=== PATIENT | female | born 1985 | race African-American/Black ===

== ENCOUNTER 2021-08-26 18:11 | Inpatient (IN) | payer OTHER ==
[2021-08-26 20:10] VITALS: BMI 21.1
[2021-08-26] MEDS ORDERED: IBUPROFEN 400 MG TABLET (FP) PO PRN (20:45)
[2021-08-26] MEDS ORDERED: ACETAMINOPHEN 325 MG TABLET (FP) PO PRN (20:45)
[2021-08-26] MEDS ORDERED: P-EPHED 60MG/TRIPROLIDI 2.5MG TABLET PO PRN (20:45)
[2021-08-26] MEDS ORDERED: NICOTINE POLACRILEX 2 MG GUM BC PRN (20:45)
[2021-08-26] MEDS ORDERED: MAGNESIUM HYDROX 2400MG/30ML ORAL SUSPENSION 30 ML CUP PO PRN (20:45)
[2021-08-26] MEDS ORDERED: LOPERAMIDE HCL 2 MG CAPSULE PO PRN (20:45)
[2021-08-26] MEDS ORDERED: MAG HYDROX/AL HYDROX/SIMETH 30 ML UNIT-DOSE CUP PO PRN (20:45)
[2021-08-26] MEDS ORDERED: guaiFENesin 200 MG/10 ML 10 ML UNIT-DOSE CUPS PO PRN (20:45)
[2021-08-26] MEDS ORDERED: MAGNESIUM CITRATE 300 ML BOTTLE PO PRN (20:45)
[2021-08-26] MEDS ORDERED: TUBERCULIN PPD 5 TU/0.1ML VIAL ID ONE (23:29)
[2021-08-26] MEDS: THIAMINE HCL 100 MG TABLET (FP) PO SCH (23:34)
[2021-08-26] MEDS: MELATONIN 5 MG TABLETS PO SCH (23:34)
[2021-08-27] MEDS: NICOTINE 14 MG/24 HOURS TOPICAL PATCH TD SCH (09:38)
[2021-08-27] MEDS: PRENATAL VITAMINS W/ FOLIC ACID TABLET (FP) PO SCH (09:38)
[2021-08-27 10:34] LABS: PH,URINE 5.5 (5.0-8.0); URINE APPEARANCE CLEAR; URINE BILIRUBIN NEGATIVE (NEGATIVE); URINE COLOR YELLOW; URINE GLUCOSE (UA) NEGATIVE (NEGATIVE); URINE KETONE TRACE (NEGATIVE); URINE LEUK ESTERASE NEGATIVE (NEGATIVE); URINE NITRITE NEGATIVE (NEGATIVE); URINE PROTEIN NEGATIVE (NEGATIVE); URINE UROBILINOGEN 0.2 mg/dL (0.2-1.0)
[2021-08-27 10:43] LABS: HEMATOCRIT 34.6 % (32.4-45.2); HEMOGLOBIN 10.5 GM/dL (10.7-15.3); MCHC 30.4 g/dl (32.0-36.0); MEAN CELL VOLUME 68.9 fl (80-96); MEAN PLT VOLUME 8.4 fl (7.5-11.1); PLATELET COUNT 297 10^3/uL (134-434); RBC 5.02 M/mm3 (3.60-5.2); RDW 14.5 % (11.6-15.6); WHITE BLOOD COUNT 3.4 K/mm3 (4.0-10.0)
[2021-08-27 10:46] LABS: ALBUMIN 3.4 g/dl (3.4-5.0); BLOOD UREA NITROGEN 8.1 mg/dL (7-18)
[2021-08-27 10:49] LABS: CREATININE 0.9 mg/dL (0.55-1.3)
[2021-08-27 10:51] LABS: BILIRUBIN,TOTAL 0.4 mg/dL (0.2-1); TOT PROT 6.1 g/dl (6.4-8.2)
[2021-08-27] MEDS: BENZTROPINE MESYLATE 1 MG TABLET PO SCH ×2 (12:26→21:10)
[2021-08-27] MEDS: ZIPRASIDONE 40 MG CAPSULE PO SCH ×2 (12:26→21:10)
[2021-08-27] MEDS: amLODIPine BESYLATE 2.5 MG TABLET (FP) PO SCH ×2 (14:24→21:11)
[2021-08-27] MEDS: THIAMINE HCL 100 MG TABLET (FP) PO SCH (21:10)
[2021-08-27] MEDS: MELATONIN 5 MG TABLETS PO SCH (21:10)
[2021-08-27] MEDS: risperiDONE 2 MG TABLET PO SCH (21:11)
[2021-08-27] MEDS: metoPROLOL SUCCINATE 25 MG TAB.SR.24H (FP) PO SCH (21:12)
[2021-08-27] MEDS ORDERED: metoPROLOL SUCCINATE 25 MG TAB.SR.24H (FP) PO SCH (22:00)
[2021-08-28] MEDS: NICOTINE 14 MG/24 HOURS TOPICAL PATCH TD SCH (10:22)
[2021-08-28] MEDS: CHOLECALCIFEROL (VIT D3) 1,000 UNIT (25 MCG) TABLET PO SCH (10:22)
[2021-08-28] MEDS: BENZTROPINE MESYLATE 1 MG TABLET PO SCH ×2 (10:22→21:24)
[2021-08-28] MEDS: FERROUS SO4 325 MG TABLET (FP) PO SCH (10:22)
[2021-08-28] MEDS: ZIPRASIDONE 40 MG CAPSULE PO SCH ×2 (10:22→21:24)
[2021-08-28] MEDS: amLODIPine BESYLATE 2.5 MG TABLET (FP) PO SCH ×2 (10:22→21:24)
[2021-08-28] MEDS: PRENATAL VITAMINS W/ FOLIC ACID TABLET (FP) PO SCH (10:22)
[2021-08-28] MEDS: MELATONIN 5 MG TABLETS PO SCH (21:25)
[2021-08-28] MEDS: risperiDONE 2 MG TABLET PO SCH (21:25)
[2021-08-28] MEDS: metoPROLOL SUCCINATE 25 MG TAB.SR.24H (FP) PO SCH (21:25)
[2021-08-28] MEDS: THIAMINE HCL 100 MG TABLET (FP) PO SCH (21:25)
[2021-08-29] MEDS: CHOLECALCIFEROL (VIT D3) 1,000 UNIT (25 MCG) TABLET PO SCH (09:48)
[2021-08-29] MEDS: BENZTROPINE MESYLATE 1 MG TABLET PO SCH ×2 (09:48→21:29)
[2021-08-29] MEDS: PRENATAL VITAMINS W/ FOLIC ACID TABLET (FP) PO SCH (09:48)
[2021-08-29] MEDS: ZIPRASIDONE 40 MG CAPSULE PO SCH ×2 (09:48→21:28)
[2021-08-29] MEDS: FERROUS SO4 325 MG TABLET (FP) PO SCH (09:48)
[2021-08-29] MEDS: amLODIPine BESYLATE 2.5 MG TABLET (FP) PO SCH ×2 (09:48→21:27)
[2021-08-29] MEDS: NICOTINE 14 MG/24 HOURS TOPICAL PATCH TD SCH (09:49)
[2021-08-29] MEDS: THIAMINE HCL 100 MG TABLET (FP) PO SCH (21:28)
[2021-08-29] MEDS: metoPROLOL SUCCINATE 25 MG TAB.SR.24H (FP) PO SCH (21:28)
[2021-08-29] MEDS: MELATONIN 5 MG TABLETS PO SCH (21:29)
[2021-08-29] MEDS: risperiDONE 2 MG TABLET PO SCH (22:01)
[2021-08-30] MEDS: BENZTROPINE MESYLATE 1 MG TABLET PO SCH ×2 (10:53→21:46)
[2021-08-30] MEDS: FERROUS SO4 325 MG TABLET (FP) PO SCH (10:53)
[2021-08-30] MEDS: PRENATAL VITAMINS W/ FOLIC ACID TABLET (FP) PO SCH (10:54)
[2021-08-30] MEDS: NICOTINE 14 MG/24 HOURS TOPICAL PATCH TD SCH (10:54)
[2021-08-30] MEDS: ZIPRASIDONE 40 MG CAPSULE PO SCH ×2 (11:21→21:48)
[2021-08-30] MEDS: CHOLECALCIFEROL (VIT D3) 1,000 UNIT (25 MCG) TABLET PO SCH (11:21)
[2021-08-30] MEDS: amLODIPine BESYLATE 2.5 MG TABLET (FP) PO SCH ×2 (11:22→21:46)
[2021-08-30] MEDS: THIAMINE HCL 100 MG TABLET (FP) PO SCH (21:46)
[2021-08-30] MEDS: metoPROLOL SUCCINATE 25 MG TAB.SR.24H (FP) PO SCH (21:47)
[2021-08-30] MEDS: MELATONIN 5 MG TABLETS PO SCH (21:48)
[2021-08-30] MEDS: risperiDONE 1 MG TABLET PO SCH (22:04)
[2021-08-31] MEDS: FERROUS SO4 325 MG TABLET (FP) PO SCH (10:24)
[2021-08-31] MEDS: BENZTROPINE MESYLATE 1 MG TABLET PO SCH ×2 (10:24→21:42)
[2021-08-31] MEDS: amLODIPine BESYLATE 2.5 MG TABLET (FP) PO SCH ×2 (10:25→21:42)
[2021-08-31] MEDS: CHOLECALCIFEROL (VIT D3) 1,000 UNIT (25 MCG) TABLET PO SCH (10:25)
[2021-08-31] MEDS: PRENATAL VITAMINS W/ FOLIC ACID TABLET (FP) PO SCH (10:26)
[2021-08-31] MEDS: NICOTINE 14 MG/24 HOURS TOPICAL PATCH TD SCH (10:26)
[2021-08-31] MEDS: ZIPRASIDONE 40 MG CAPSULE PO SCH ×2 (10:26→21:42)
[2021-08-31] MEDS: THIAMINE HCL 100 MG TABLET (FP) PO SCH (21:42)
[2021-08-31] MEDS: metoPROLOL SUCCINATE 25 MG TAB.SR.24H (FP) PO SCH (21:42)
[2021-08-31] MEDS: risperiDONE 1 MG TABLET PO SCH (21:42)
[2021-08-31] MEDS: MELATONIN 5 MG TABLETS PO SCH (21:43)
[2021-09-01] MEDS: PRENATAL VITAMINS W/ FOLIC ACID TABLET (FP) PO SCH (10:36)
[2021-09-01] MEDS: FERROUS SO4 325 MG TABLET (FP) PO SCH (10:37)
[2021-09-01] MEDS: BENZTROPINE MESYLATE 1 MG TABLET PO SCH ×2 (10:37→21:25)
[2021-09-01] MEDS: ZIPRASIDONE 40 MG CAPSULE PO SCH ×2 (10:38→21:24)
[2021-09-01] MEDS: amLODIPine BESYLATE 2.5 MG TABLET (FP) PO SCH ×2 (10:38→21:27)
[2021-09-01] MEDS: NICOTINE 14 MG/24 HOURS TOPICAL PATCH TD SCH (10:39)
[2021-09-01] MEDS: CHOLECALCIFEROL (VIT D3) 1,000 UNIT (25 MCG) TABLET PO SCH (10:39)
[2021-09-01] MEDS: THIAMINE HCL 100 MG TABLET (FP) PO SCH (21:24)
[2021-09-01] MEDS: MELATONIN 5 MG TABLETS PO SCH (21:25)
[2021-09-01] MEDS: metoPROLOL SUCCINATE 25 MG TAB.SR.24H (FP) PO SCH (21:25)
[2021-09-01] MEDS: risperiDONE 1 MG TABLET PO SCH (21:25)
[2021-09-02] MEDS: FERROUS SO4 325 MG TABLET (FP) PO SCH (10:28)
[2021-09-02] MEDS: PRENATAL VITAMINS W/ FOLIC ACID TABLET (FP) PO SCH (10:28)
[2021-09-02] MEDS: NICOTINE 14 MG/24 HOURS TOPICAL PATCH TD SCH (10:29)
[2021-09-02] MEDS: BENZTROPINE MESYLATE 1 MG TABLET PO SCH ×2 (10:29→21:12)
[2021-09-02] MEDS: ZIPRASIDONE 40 MG CAPSULE PO SCH ×2 (10:29→21:12)
[2021-09-02] MEDS: amLODIPine BESYLATE 2.5 MG TABLET (FP) PO SCH ×2 (10:29→21:12)
[2021-09-02] MEDS: CHOLECALCIFEROL (VIT D3) 1,000 UNIT (25 MCG) TABLET PO SCH (10:30)
[2021-09-02] MEDS: THIAMINE HCL 100 MG TABLET (FP) PO SCH (21:12)
[2021-09-02] MEDS: risperiDONE 1 MG TABLET PO SCH (21:12)
[2021-09-02] MEDS: metoPROLOL SUCCINATE 25 MG TAB.SR.24H (FP) PO SCH (21:12)
[2021-09-02] MEDS: MELATONIN 5 MG TABLETS PO SCH (21:13)
[2021-09-03] MEDS: PRENATAL VITAMINS W/ FOLIC ACID TABLET (FP) PO SCH (10:24)
[2021-09-03] MEDS: CHOLECALCIFEROL (VIT D3) 1,000 UNIT (25 MCG) TABLET PO SCH (10:25)
[2021-09-03] MEDS: ZIPRASIDONE 40 MG CAPSULE PO SCH ×2 (10:25→21:40)
[2021-09-03] MEDS: amLODIPine BESYLATE 2.5 MG TABLET (FP) PO SCH ×2 (10:25→21:39)
[2021-09-03] MEDS: NICOTINE 14 MG/24 HOURS TOPICAL PATCH TD SCH (10:27)
[2021-09-03] MEDS: FERROUS SO4 325 MG TABLET (FP) PO SCH (10:27)
[2021-09-03] MEDS: BENZTROPINE MESYLATE 1 MG TABLET PO SCH ×2 (10:27→21:39)
[2021-09-03] MEDS: THIAMINE HCL 100 MG TABLET (FP) PO SCH (21:39)
[2021-09-03] MEDS: MELATONIN 5 MG TABLETS PO SCH (21:40)
[2021-09-03] MEDS: risperiDONE 1 MG TABLET PO SCH (21:40)
[2021-09-03] MEDS: metoPROLOL SUCCINATE 25 MG TAB.SR.24H (FP) PO SCH (21:40)
[2021-09-04] MEDS: FERROUS SO4 325 MG TABLET (FP) PO SCH (10:44)
[2021-09-04] MEDS: BENZTROPINE MESYLATE 1 MG TABLET PO SCH ×2 (10:44→21:19)
[2021-09-04] MEDS: PRENATAL VITAMINS W/ FOLIC ACID TABLET (FP) PO SCH (10:44)
[2021-09-04] MEDS: ZIPRASIDONE 40 MG CAPSULE PO SCH ×2 (10:45→21:23)
[2021-09-04] MEDS: CHOLECALCIFEROL (VIT D3) 1,000 UNIT (25 MCG) TABLET PO SCH (10:45)
[2021-09-04] MEDS: amLODIPine BESYLATE 2.5 MG TABLET (FP) PO SCH ×2 (10:45→21:19)
[2021-09-04] MEDS: NICOTINE 14 MG/24 HOURS TOPICAL PATCH TD SCH (10:46)
[2021-09-04] MEDS: THIAMINE HCL 100 MG TABLET (FP) PO SCH (21:17)
[2021-09-04] MEDS: metoPROLOL SUCCINATE 25 MG TAB.SR.24H (FP) PO SCH (21:18)
[2021-09-04] MEDS: risperiDONE 1 MG TABLET PO SCH (21:20)
[2021-09-04] MEDS: MELATONIN 5 MG TABLETS PO SCH (21:21)
[2021-09-05] MEDS: BENZTROPINE MESYLATE 1 MG TABLET PO SCH ×2 (10:41→21:24)
[2021-09-05] MEDS: NICOTINE 14 MG/24 HOURS TOPICAL PATCH TD SCH (10:41)
[2021-09-05] MEDS: CHOLECALCIFEROL (VIT D3) 1,000 UNIT (25 MCG) TABLET PO SCH (10:41)
[2021-09-05] MEDS: PRENATAL VITAMINS W/ FOLIC ACID TABLET (FP) PO SCH (10:41)
[2021-09-05] MEDS: FERROUS SO4 325 MG TABLET (FP) PO SCH (10:41)
[2021-09-05] MEDS: amLODIPine BESYLATE 2.5 MG TABLET (FP) PO SCH ×2 (10:42→21:26)
[2021-09-05] MEDS: ZIPRASIDONE 40 MG CAPSULE PO SCH ×2 (10:42→21:24)
[2021-09-05] MEDS: THIAMINE HCL 100 MG TABLET (FP) PO SCH (21:26)
[2021-09-05] MEDS: risperiDONE 1 MG TABLET PO SCH (21:26)
[2021-09-05] MEDS: metoPROLOL SUCCINATE 25 MG TAB.SR.24H (FP) PO SCH (21:26)
[2021-09-05] MEDS: MELATONIN 5 MG TABLETS PO SCH (21:26)
[2021-09-06] MEDS: PRENATAL VITAMINS W/ FOLIC ACID TABLET (FP) PO SCH (10:21)
[2021-09-06] MEDS: amLODIPine BESYLATE 2.5 MG TABLET (FP) PO SCH ×2 (10:22→21:40)
[2021-09-06] MEDS: BENZTROPINE MESYLATE 1 MG TABLET PO SCH ×2 (10:22→21:40)
[2021-09-06] MEDS: FERROUS SO4 325 MG TABLET (FP) PO SCH (10:22)
[2021-09-06] MEDS: CHOLECALCIFEROL (VIT D3) 1,000 UNIT (25 MCG) TABLET PO SCH (10:22)
[2021-09-06] MEDS: NICOTINE 14 MG/24 HOURS TOPICAL PATCH TD SCH (10:23)
[2021-09-06] MEDS: ZIPRASIDONE 40 MG CAPSULE PO SCH ×2 (10:23→21:40)
[2021-09-06] MEDS: risperiDONE 1 MG TABLET PO SCH (21:40)
[2021-09-06] MEDS: THIAMINE HCL 100 MG TABLET (FP) PO SCH (21:40)
[2021-09-06] MEDS: MELATONIN 5 MG TABLETS PO SCH (21:40)
[2021-09-06] MEDS: metoPROLOL SUCCINATE 25 MG TAB.SR.24H (FP) PO SCH (21:42)
[2021-09-07] MEDS: BENZTROPINE MESYLATE 1 MG TABLET PO SCH ×2 (10:16→21:40)
[2021-09-07] MEDS: ZIPRASIDONE 40 MG CAPSULE PO SCH ×2 (10:16→21:40)
[2021-09-07] MEDS: FERROUS SO4 325 MG TABLET (FP) PO SCH (10:16)
[2021-09-07] MEDS: NICOTINE 14 MG/24 HOURS TOPICAL PATCH TD SCH (10:16)
[2021-09-07] MEDS: PRENATAL VITAMINS W/ FOLIC ACID TABLET (FP) PO SCH (10:16)
[2021-09-07] MEDS: amLODIPine BESYLATE 2.5 MG TABLET (FP) PO SCH ×2 (10:16→21:40)
[2021-09-07] MEDS: CHOLECALCIFEROL (VIT D3) 1,000 UNIT (25 MCG) TABLET PO SCH (10:17)
[2021-09-07] MEDS: metoPROLOL SUCCINATE 25 MG TAB.SR.24H (FP) PO SCH (21:40)
[2021-09-07] MEDS: THIAMINE HCL 100 MG TABLET (FP) PO SCH (21:40)
[2021-09-07] MEDS: MELATONIN 5 MG TABLETS PO SCH (21:40)
[2021-09-07] MEDS: risperiDONE 1 MG TABLET PO SCH (21:40)
[2021-09-08] MEDS: FERROUS SO4 325 MG TABLET (FP) PO SCH (10:11)
[2021-09-08] MEDS: PRENATAL VITAMINS W/ FOLIC ACID TABLET (FP) PO SCH (10:11)
[2021-09-08] MEDS: ZIPRASIDONE 40 MG CAPSULE PO SCH ×2 (10:11→22:00)
[2021-09-08] MEDS: BENZTROPINE MESYLATE 1 MG TABLET PO SCH ×2 (10:11→22:00)
[2021-09-08] MEDS: amLODIPine BESYLATE 2.5 MG TABLET (FP) PO SCH ×2 (10:11→22:00)
[2021-09-08] MEDS: CHOLECALCIFEROL (VIT D3) 1,000 UNIT (25 MCG) TABLET PO SCH (10:12)
[2021-09-08] MEDS: NICOTINE 14 MG/24 HOURS TOPICAL PATCH TD SCH (10:13)
[2021-09-08] MEDS: THIAMINE HCL 100 MG TABLET (FP) PO SCH (21:59)
[2021-09-08] MEDS: risperiDONE 1 MG TABLET PO SCH (21:59)
[2021-09-08] MEDS: MELATONIN 5 MG TABLETS PO SCH (21:59)
[2021-09-08] MEDS: metoPROLOL SUCCINATE 25 MG TAB.SR.24H (FP) PO SCH (21:59)
[2021-09-08 22:42] VITALS: TEMP 97.1
[2021-09-09] MEDS: ZIPRASIDONE 40 MG CAPSULE PO SCH (10:07)
[2021-09-09] MEDS: BENZTROPINE MESYLATE 1 MG TABLET PO SCH (10:07)
[2021-09-09] MEDS: FERROUS SO4 325 MG TABLET (FP) PO SCH (10:07)
[2021-09-09] MEDS: CHOLECALCIFEROL (VIT D3) 1,000 UNIT (25 MCG) TABLET PO SCH (10:07)
[2021-09-09] MEDS: PRENATAL VITAMINS W/ FOLIC ACID TABLET (FP) PO SCH (10:07)
[2021-09-09] MEDS: amLODIPine BESYLATE 2.5 MG TABLET (FP) PO SCH (10:07)
[2021-09-09] MEDS: NICOTINE 14 MG/24 HOURS TOPICAL PATCH TD SCH (10:09)
[2021-09-09 11:19] VITALS: BP 136/88; PULSE 87
== END 2021-09-09 10:12 | disposition home or self-care (01) | DRG 895 ==
LOC: YASAS 18:11 → Y3W 21:05 → Y5N 08-29 13:10
PROVIDERS: ADMIT Allergy & Immunology; ATTEND Allergy & Immunology
PROC: HZ42ZZZ Group Counseling for Substance Abuse Treatment, Cognitive-Behavioral (ICD-10-PCS; principal; 2021-08-26)
DX: F16.20 Hallucinogen dependence, uncomplicated (principal); F20.0 Paranoid schizophrenia; F12.20 Cannabis dependence, uncomplicated; F17.210 Nicotine dependence, cigarettes, uncomplicated; D64.9 Anemia, unspecified; E55.9 Vitamin D deficiency, unspecified; E58 Dietary calcium deficiency; E03.9 Hypothyroidism, unspecified; I10 Essential (primary) hypertension; B35.3 Tinea pedis; Z86.19 Personal history of other infectious and parasitic diseases
CPT/HCPCS: 36415; 80053; 81003; 81025; 85027; 86780; 93005; 93010; C9803; J2794; U0003; U0005